=== PATIENT | female | born 1995 | race Caucasian/White ===

== ENCOUNTER → 2018-11-06 | Outpatient (CLI) | payer OTHER ==
--- NOTE | 2018-11-06 10:51 | 2DMMODE ---
[facility] [address] [place] [address] 2 D/M-MODE ECHOCARDIOGRAM Name: CARMINA JIANG Room #: REG [facility] [id number] ������������� Admission: 11/06/18 ������������� Attend Phys: Iam Fierro, Discharge: ��� ������������� ��� Date of : 89 Date of Service: 11/06/18 1051 �� Report #: [id number] �������� ��������������������������������������������[id number] THIS REPORT FOR: //name// APPROVED REPORT Study performed: 11/06/2018 10:13:30 EXAM: Comprehensive 2D, Doppler, and color-flow Echocardiogram Patient Location: Out-Patient Status: routine BSA: 1.77 HR: 66 bpm BP: 108/68 mmHg Rhythm: NSR Other Information Study Quality: Adequate Indications Shortness of breath. 2D Dimensions RVDd: 37.94 mm IVSd: 9.95 (7-11mm) LVOT Diam: 21.49 (18-24mm) LVDd: 47.90 mm PWd: 9.21 (7-11mm) LVDs: 28.04 (25-40mm) Aortic Root: 28.15 mm Volumes Left Atrial Volume (Systole) Single Plane 4CH: 40.26 mL Single Plane 2CH: 48.80 mL LA ESV Index: 27.00 mL/m2 Aortic Valve AoV Peak Markel.: 1.40 m/s AO Peak Gr.: 7.89 mmHg LVOT Max P.24 mmHg LVOT Max V: 1.03 m/s HEYDI Vmax: 2.66 cm2 Mitral Valve E/A Ratio: 2.1 MV Decel. Time: 266.52 ms MV E Max Markel.: 0.76 m/s [facility] [address] [place] [address] 2 D/M-MODE ECHOCARDIOGRAM Name: CARMINA JIANG Room #: REG [facility]#: [id number] ������������� Admission: 11/06/18 ������������� Attend Phys: Iam Fierro, Discharge: ��� ������������� ��� Date of : [birth year] Date of Service: 11/06/18 1051 �� Report #: [id number] �������� ��������������������������������������������[id number] MV A Markel.: 0.36 m/s MV PHT: 77.29 ms IVRT: 73.82 ms Pulmonary Valve PV Peak Markel.: 0.77 m/s PV Peak Gr.: 2.35 mmHg Pulmonary Vein P Vein S: 0.63 m/s P Vein A: 0.35 m/s P Vein D: 0.76 m/s P Vein A Dur.: 110.7 msec P Vein S/D Ratio: 0.83 Tricuspid Valve TR Peak Markel.: 2.11 m/s RAP Estimate: 5.00 mmHg TR Peak Gr.: 17.84 mmHg PA Pressure: 23.00 mmHg Left Ventricle The left ventricle is normal size. There is normal LV segmental wall motion. There is normal left ventricular wall thickness. Left ventricular systolic function is normal. LVEF is 55-60%. The left ventricular diastolic function is normal. Right Ventricle The right ventricle is normal size. The right ventricular systolic function is normal. Atria The left atrium size is normal. The right atrium size is normal. Aortic Valve The aortic valve is normal in structure. No aortic regurgitation is present. There is no aortic valvular stenosis. Mitral Valve The mitral valve is normal in structure. There is no mitral valve regurgitation noted. No evidence of mitral valve stenosis. Tricuspid Valve The tricuspid valve is normal in structure. Trace tricuspid regurgitation. Estimated PAP is 20-25mmHg. Pulmonic Valve The pulmonary valve is normal in structure. Trace pulmonic regurgitation. [facility] [address] [place] [address] 2 D/M-MODE ECHOCARDIOGRAM Name: CARMINA JIANG [facility] Room #: REG Tad#: [id number] ������������� Admission: 11/06/18 ������������� Attend Phys: Iam Fierro, Discharge: ��� ������������� ��� Date of : [birth year] Date of Service: 11/06/18 1051 �� Report #: [id number] �������� ��������������������������������������������[id number] Great Vessels The aortic root is normal in size. The ascending aorta is normal in size. IVC is normal in size and collapses >50% with inspiration. Pericardium There is no pericardial effusion. <Conclusion> The left ventricle is normal size. There is normal left ventricular wall thickness. Left ventricular systolic function is normal. The right ventricle is normal size. The left atrium size is normal. The aortic valve is normal in structure. The mitral valve is normal in structure. Trace tricuspid regurgitation. Estimated PAP is 20-25mmHg. ��������������������������������������������� <ELECTRONICALLY SIGNED> ���������������������������������������� By: Arnaldo Serrano MD ��������������������������������������������� 11/06/18 105 50 50 Arnaldo Serrano MD /INF
== END ==
LOC: CV 06:29
DX: J45.990 Exercise induced bronchospasm (principal)

== ENCOUNTER → 2018-11-21 | Outpatient (CLI) | payer OTHER | LOC: ULTRA 14:44 | DX: E04.2 Nontoxic multinodular goiter (principal) ==